=== PATIENT | male | born 1945 | race Caucasian/White ===

== ENCOUNTER → 2025-07-01 10:33 | Outpatient (CLI) | payer MEDICARE, OTHER, SELFPAY ==
[2025-07-01 11:59] LABS: Prostate Specific Antigen 3.43 ng/mL (0.10-4.00)
== END ==
PROVIDERS: PCP Student in an Organized Health Care Education/Training Program; Referring Provider Urology; Visit Provider Urology
DX: R97.20 Elevated prostate specific antigen [PSA] (principal); N40.1 Benign prostatic hyperplasia with lower urinary tract symptoms; Z68.35 Body mass index [BMI] 35.0-35.9, adult
CPT/HCPCS: 36415; 84153; 99214